=== PATIENT | male | born 1945 | race Caucasian/White ===

== ENCOUNTER 2021-02-01 21:03 | Emergency (ER) | payer MEDICARE ==
[~2021-02-01] VITALS: Ht 165.1 cm; Wt 72.7 kg
[2021-02-01 21:24] VITALS: BP 143/87
[2021-02-01] MEDS ORDERED: DIPH,PERTUSS(ACELL),TET VAC/PF 0.5 ML SYRINGE. VAX IM ONE ×2 (21:55→22:00)
--- NOTE | 2021-02-01 21:55 | PHYS DOC ---
Past History Past Medical History: No Pertinent History Past Surgical History: Other Additional Past Surgical Histo: BX HIP, BX KNEE, BACK SX, BX CARPAL TUNNEL Alcohol Use: Occasionally General Adult EDM: Chief Complaint: LACERATION/AVULSION HPI: HPI: 75-year-old male presents with left thumb laceration. He was cutting some vegetables at home when the knife slipped and cut the pad of his left thumb. Patient was able to control the bleeding at home but was concerned and went stitches were given the emergency room. Last tetanus was more than 5 years ago. Patient denies any other injuries or complaints at this time. Review of Systems: Review of Systems: Constitutional: Denies fever or chills Eyes: Denies change in visual acuity HENT: Denies nasal congestion or sore throat Respiratory: Denies cough or shortness of breath Cardiovascular: Denies chest pain or edema GI: Denies abdominal pain, nausea, vomiting, bloody stools or diarrhea : Denies dysuria Musculoskeletal: Denies back pain or joint pain Integument: Laceration left thumb Neurologic: Denies headache, focal weakness or sensory changes Endocrine: Denies polyuria or polydipsia Lymphatic: Denies swollen glands Psychiatric: Denies depression or anxiety Allergies: Allergies: Allergies Coded Allergies Type Severity Reaction Last Updated Verified No Known Drug Allergies 02/01/21 No Physical Exam: PE: Constitutional: Well developed, well nourished, no acute distress, non-toxic appearance. [] HENT: Normocephalic, atraumatic, bilateral external ears normal, oropharynx moist, no oral exudates, nose normal. [] Eyes: PERRLA, EOMI, conjunctiva normal, no discharge. [] Neck: Normal range of motion, no tenderness, supple, no stridor. [] Cardiovascular:Heart rate regular rhythm, no murmur [] Lungs & Thorax: Bilateral breath sounds clear to auscultation [] Abdomen: Bowel sounds normal, soft, no tenderness, no masses, no pulsatile masses. [] Skin: 1.5 cm curved laceration of the left thumb [] Back: No tenderness, no CVA tenderness. [] Extremities: No tenderness, no cyanosis, no clubbing, ROM intact, no edema. [] Neurologic: Alert and oriented X 3, normal motor function, normal sensory function, no focal deficits noted. [] Psychologic: Affect normal, judgement normal, mood normal. [] Current Patient Data: Vital Signs: Vital Signs Date Time Temp Pulse Resp B/P (MAP) Pulse Ox O2 Delivery O2 Flow Rate FiO2 02/01/21 21:24 97.4 87 18 143/87 (105) 95 Room Air EKG: EKG: [] Radiology/Procedures: Radiology/Procedures: [] Heart Score: C/O Chest Pain: N/A Risk Factors: Risk Factors: DM, Current or recent (<one month) smoker, HTN, HLP, family history of CAD, obesity. Risk Scores: Score 0 - 3: 2.5% MACE over next 6 weeks - Discharge Home Score 4 - 6: 20.3% MACE over next 6 weeks - Admit for Clinical Observation Score 7 - 10: 72.7% MACE over next 6 weeks - Early Invasive Strategies Course & Med Decision Making: Course & Med Decision Making Pertinent Labs and Imaging studies reviewed. (See chart for details) The patient had a curved laceration of the thumb. I repaired it the best that I could. See note below for details. I did warn the patient that this flap of skin may not survive but the wound would eventually close from surrounding skin. His tetanus was updated in the ED. [] Dragon Disclaimer: Dragon Disclaimer: This electronic medical record was generated, in whole or in part, using a voice recognition dictation system. Laceration Repair Lac Repair Indication: [] 1.5 cm curved laceration of the left thumb Procedure: The patient gave verbal consent for suture repair of his left thumb laceration. The wound was thoroughly irrigated with normal saline under pres sure. No foreign bodies were found. I anesthetized the wound with 1.5 cc of 2% lidocaine without epinephrine. I placed 3 sutures in interrupted fashion. 4-0 Ethilon suture was used. There was good skin approximation. Bleeding was controlled. A clean dressing was applied. Tetanus was updated in the ED. Total repaired wound length: 1.5 cm Other Items: None The patient tolerated the procedure well. Complications: Curved flap. Departure Departure: Impression: Primary Impression: Laceration of left thumb Qualified Codes: S61.012A - Laceration without foreign body of left thumb without damage to nail, initial encounter Referrals: RADHA BARRY MD (PCP) Patient Instructions: Fingertip Laceration, Sutured Wound Care, [id number] TONJA PHIPPS DO February 01, 2021 21:55
== END 2021-02-01 22:00 | disposition home or self-care (01) ==
LOC: ER 21:03
DX: S61.012A Laceration without foreign body of left thumb without damage to nail, initial encounter (principal); W26.0XXA Contact with knife, initial encounter; Y93.89 Activity, other specified; Y92.89 Other specified places as the place of occurrence of the external cause; Y99.8 Other external cause status
CPT/HCPCS: 12001; 90471; 90715; 99283

== ENCOUNTER → 2021-08-27 | Outpatient (CLI) | payer MEDICARE ==
--- NOTE | 2021-08-28 08:17 | RAD ---
CLINICAL HISTORY: Reason: PROSTATE CA / Spl. Instructions: / History: COMPARISON: No prior study is available for comparison. TECHNIQUE: Radiopharmaceutical Dose: 26 mCi Tc99m MDP intravenous Approximately 2-4 hours after the administration of tracer, the patient was instructed to void and wh ole body images were obtained in the anterior and posterior projections. FINDINGS: Physiologic activity is seen within the soft tissues of the right elbow likely physiologic from injec tion site. Activity is also seen within the expected bladder, possibly physiologic. Focus of absent t racer uptake at the left knee and hips, likely from arthroplasty change. Focal uptake within the medi al right knee likely degenerative. Mild uptake left elbow, degenerative. Focal uptake is also seen wi thin the likely L2 vertebral body and sternoclavicular junction, favored to be degenerative although can be correlated with prior exams further evaluation with CT or radiographs. There is also focal upt margot at the right maxilla can be correlated for possible dental disease. IMPRESSION: 1. Focal uptake within the likely L2 vertebral body and sternoclavicular junction, favored to be deg enerative although can be correlated with prior exams otherwise recommend further evaluation with CT or radiographs. 2. Focal uptake at the right maxilla suspected dental disease. 3. Otherwise physiologic radiotracer distribution as above. Radiation Dosimetry: The radiopharmaceutical used for this exam delivers approximately 0.21 mSv/mCi (21 mRem/mCi) Source: RADIATION DOSE ESTIMATES TO ADULTS AND CHILDREN, [place]; Effective dose RADAR Electronically signed by: Benito Wood MD (08/28/2021 8:15 AM) [id number]
== END ==
LOC: NM 08:08
PROVIDERS: ATTEND Specialist
DX: C61 Malignant neoplasm of prostate (principal); M19.022 Primary osteoarthritis, left elbow
CPT/HCPCS: 78306; A9503

== ENCOUNTER 2021-09-23 15:37 | Emergency (ER) | payer MEDICARE ==
[~2021-09-23] VITALS: Ht 165.1 cm; Wt 73.0 kg
[2021-09-23 17:10] VITALS: BP 141/87
--- NOTE | 2021-09-23 17:21 | PHYS DOC ---
Past History Past Medical History: No Pertinent History (MODESTO SOFIA APRN) Past Surgical History: Other Additional Past Surgical Histo: BX HIP, BX KNEE, BACK SX, BX CARPAL TUNNEL (MODESTO SOFIA APRN) Alcohol Use: Occasionally (MODESTO SOFIA APRN) General Adult EDM: Chief Complaint: THUMB HPI: HPI: Patient is a 76-year-old male who presents to the emergency department for right pain, swelling and bruising that started yesterday after he slipped and fell onto a railroad track onto his right hand. Patient denies any decreased range of motion or decreased sensation in his hand. (MODESTO SOFIA APRN) Review of Systems: Review of Systems: Musculoskeletal: See HPI Integument: See HPI Neurologic: See HPI (MODESTO SOFIA APRN) Allergies: Allergies: Allergies Coded Allergies Type Severity Reaction Last Updated Verified No Known Drug Allergies 02/01/21 No (MODESTO SOFIA APRN) Physical Exam: PE: Constitutional: Well developed, well nourished, no acute distress, non-toxic appearance. [] HENT: Normocephalic, atraumatic, bilateral external ears normal, oropharynx moist, no oral exudates, nose normal. [] Eyes: PERRL, EOMI, conjunctiva normal, no discharge. [] Neck: Normal range of motion, no stridor Cardiovascular: Normal peripheral perfusion Lungs & Thorax: Normal work of breathing, no tachypnea Abdomen: Soft and flat Skin: Warm, dry, no erythema, no rash. [] Back: Full range of motion Extremities: No tenderness, no cyanosis, no clubbing, ROM intact, no edema. [] Right thumb: Mild swelling and ecchymosis noted to the palmar aspect of right thumb, range of motion intact, neuro intact, no obvious deformity Neurologic: Alert and oriented X 3, normal motor function, normal sensory function, no focal deficits noted. [] Psychologic: Affect normal, judgement normal, mood normal. [] (MODESTO SOFIA APRN) EKG: EKG: [] (MODESTO SOFIA APRN) Radiology/Procedures: Radiology/Procedures: []PROCEDURE: HAND RIGHT 3V EXAM: Right hand, 3 views. HISTORY: Trauma. Fall. COMPARISON: None. FINDINGS: 3 views of the right hand are obtained. There is a mildly displaced fracture involving the proximal aspect of the first distal phalanx. There is a corticated ossicle along the dorsal aspect of the wrist, possibly due to a chronic nonunited triquetral fracture fragment. There is also a chronic nonunited fracture fragment or chronic fragmented spur involving the first interphalangeal joint. IMPRESSION: Acute displaced fracture involving the first distal phalanx. Electronically signed by: Desi Bello MD (09/23/2021 5:38 PM) [id number] DICTATED AND SIGNED BY: DESI BELLO MD DATE: 09/23/[id number] CC: TONJA PHIPPS DO; EMERGENCY,DEPARTMENT; RADHA BARRY MD ~MTH0 0 (MODESTO SOFIA APRN) Heart Score: C/O Chest Pain: N/A Risk Factors: Risk Factors: DM, Current or recent (<one month) smoker, HTN, HLP, family history of CAD, obesity. Risk Scores: Score 0 - 3: 2.5% MACE over next 6 weeks - Discharge Home Score 4 - 6: 20.3% MACE over next 6 weeks - Admit for Clinical Observation Score 7 - 10: 72.7% MACE over next 6 weeks - Early Invasive Strategies (MODESTO SOFIA APRN) Course & Med Decision Making: Course & Med Decision Making Pertinent Labs and Imaging studies reviewed. (See chart for details) Patient presents emergency department for right thumb swelling, pain and bruising after falling onto it. An x-ray was performed that showed fracture of thumb patient is then placed in splint. Neurovascularly intact pre and post sling placement. Patient advised to apply ice, elevate and take Tylenol and/ibuprofen for pain. Patient advised to follow-up with orthopedic and given referral information. I discussed with patient all findings and diagnostic testing as well as the need to follow-up with PCP for further evaluation and treatment or return to the ER if any new or worsening symptoms. Strict return precautions were also discussed at length. Patient voiced understanding and agreement with the plan. Patient is hemodynamically stable at the time of disposition. (MODESTO SOFIA APRN) Dragon Disclaimer: Dragon Disclaimer: This electronic medical record was generated, in whole or in part, using a voice recognition dictation system. (MODESTO SOFIA APRN) Attending Co-Sign The patient was seen and interviewed as well as examined at the bedside. The chart was reviewed. The case was discussed. Agree with the plan of care. (TONJA PHIPPS DO) Departure Departure: Impression: Primary Impression: Finger fracture Qualified Codes: S62.521A - Displaced fracture of distal phalanx of right thumb, initial encounter for closed fracture Disposition: HOME / SELF CARE / HOMELESS Condition: GOOD Referrals: RADHA BARRY MD (PCP) Patient Instructions: Finger Fracture Additional Instructions: You are seen in the emergency department today for a thumb injury. It appears that you have a fracture of your thumb. Her thumb will be placed in a aluminum finger splint for comfort. Please continue to wear this. Use ice and elevation to help with swelling. You can take Tylenol and/ibuprofen for your pain. If you continue to have pain you may need to follow-up with an orthopedic doctor by calling hand surgery at [phone]. Otherwise, follow-up with your primary care provider tomorrow regarding your ER visit. Return to the emergency department if you develop worsening of your pain, increased swelling, decreased range of motion or decreased sensation in your finger. MODESTO SOFIA APRN Sep 23, 2021 17:21 TONJA PHIPPS DO Sep 24, 2021 07:16
--- NOTE | 2021-09-23 17:41 | RAD ---
EXAM: Right hand, 3 views. HISTORY: Trauma. Fall. COMPARISON: None. FINDINGS: 3 views of the right hand are obtained. There is a mildly displaced fracture involving the proximal aspect of the first distal phalanx. There is a corticated ossicle along the dorsal aspect of the wrist, possibly due to a chronic nonunited triquetral fracture fragment. There is also a chronic nonunited fracture fragment or chronic fragmented spur involving the first interphalangeal joint. IMPRESSION: Acute displaced fracture involving the first distal phalanx. Electronically signed by: Desi Elizabeth MD (09/23/2021 5:38 PM) [email or web address]
== END 2021-09-23 18:29 | disposition home or self-care (01) ==
LOC: ER 15:37
DX: S62.521A Displaced fracture of distal phalanx of right thumb, initial encounter for closed fracture (principal); W01.0XXA Fall on same level from slipping, tripping and stumbling without subsequent striking against object, initial encounter; Y93.89 Activity, other specified; Y92.89 Other specified places as the place of occurrence of the external cause; Y99.8 Other external cause status
CPT/HCPCS: 29125; 73130; 99283